=== PATIENT | male | born 1980 | race Caucasian/White ===

== ENCOUNTER 2016-09-17 17:36 | Emergency (ER) | payer OTHER ==
--- OUTSIDE RECORDS SUMMARY | 2016-09-17 18:11 | XMS REPORT | Continuity of Care Document ---
:1980 Author Organization [employer] [place] [address] Care Team Providers Name Role Phone Unavailable Primary Care Provider Unavailable Source Comments This disclosure is being made pursuant to the [employer] program and maynot contain all information available regarding this patient.[employer] Active Allergies and Adverse Reactions Not on File Current Medications Be aware that medications may not be up to date as of this document. Alwaysverify current medications with the patient. Not on file Active Problems Not on file Social History Tobacco Use Types Packs/Day Years Used Date Never Assessed Plan of Care Health Maintenance Due Date Last Done Comments Retired-Pertussis Vaccine Adult 1998 Retired-Tetanus Vaccine Adult 1998 Retired-INFLUENZA VACCINE 02/10/2015 Results from Last 3 Months Not on file
[2016-09-17] MEDS ORDERED: ALPRAZolam 0.25 MG TABLET PO ONE (18:12)
--- OUTSIDE RECORDS SUMMARY | 2016-09-17 18:12 | XMS REPORT | Continuity of Care Document ---
:1980 Author Organization [facility] ([facility]) Address [address] [place] [address] Phone [phone] Care Team Providers Name Role Phone Provider, No-Primary Care Primary Care Provider Unavailable Source Comments This disclosure is being made pursuant to the Care Everywhere program, applicable federal and state laws, and may not contain all informaitonavailable regarding this patient.[facility] ([facility]) Active Allergies and Adverse Reactions Allergen Noted Date Severity Reactions Comments Penicillin V Potassium 02/01/2012 Rash Current Medications Prescription Sig. Disp. Refills Start Date End Date Status haloperidol 10 mg Take 10 mg by mouth Active tablet at bedtime. PALIPERIDONE PALMITATE inject Active (INVEGA SUSTENNA IM) intramuscularly. clonazepam 1 mg Take 1 mg by mouth Active disintegrating tablet daily. DIPHENHYDRAMINE HCL Take by mouth. Active (BENADRYL ALLERGY PO) BUPROPION HCL Take by mouth 2 Active (WELLBUTRIN PO) times daily. HYDROcodone-acetaminoph Take 1 Tab by mouth 12 Tab 0 05/21/2012 Active en 5-325 mg per tablet every 4 hours as needed for Pain. DO NOT EXCEED 3,000 MG ACETAMINOPHEN PER DAY FROM ALL SOURCES Indications: PAIN Active Problems Not on file Social History Tobacco Use Types Packs/Day Years Used Date Current Every Day Smoker Cigarettes 2 21 Smokeless Tobacco: Former User Chew Tobacco Cessation:Ready to Quit: Yes Comments: Alcohol Use Drinks/Week oz/Week Comments Yes 6 Standard drinks or equivalent 3.0 Last Filed Vital Signs Vital Sign Reading Time Taken Blood Pressure 159/92 05/15/2012 12:33 PM INSPECTOR AND CLERK Pulse 84 05/15/2012 9:30 AM INSPECTOR AND CLERK Temperature 36.4 C (97.5 F) 05/15/2012 9:30 AM INSPECTOR AND CLERK Respiratory Rate 20 05/15/2012 9:30 AM INSPECTOR AND CLERK Height 1.905 m (6' 3") 05/15/2012 9:28 AM INSPECTOR AND CLERK Weight 153.316 kg (338 lb) 05/15/2012 9:28 AM INSPECTOR AND CLERK Body Mass Index 42.25 05/15/2012 9:28 AM INSPECTOR AND CLERK Oxygen Saturation 98% 05/15/2012 12:33 PM INSPECTOR AND CLERK Plan of Care Health Maintenance Due Date Last Done Comments Hepatitis B Vaccine (1 of 3 - Primary Series) 1980 Tdap Vaccine 1990 Lipid Disorder Screening 1997 MMR Vaccine 1997 Td Vaccine 1997 Pneumococcal Vaccine (1 of 1 - PPSV23) 1998 Influenza Vaccine: Seasonal (#1) 01/11/2016 Results from Last 3 Months Not on file
[2016-09-17] MEDS ORDERED: ALPRAZolam 0.25 MG TABLET ONE (18:17)
--- NOTE | 2016-09-17 18:36 | ERNOTE ---
Psychological HPI - Date Date of Service: 09/17/16 - General Chief Complaint: Anxiety Source: Reports: patient Exam Limitations: Reports: no limitations - Immun/Allergies/Home Medications Allergies/Adverse Reactions: Allergies Penicillins Allergy (Intermediate, Verified 09/17/16 17:57) Hives Home Medications: HOME MEDICATIONS Haloperidol [Haldol] 10 mg PO TID 06/08/16 [Last Taken 06/08/16] - History of Present Illness Narrative: 26 year old male presenting to the ER for anxiety. states he has been feeling anxious for the last 2 days. Time Seen by Provider: 09/17/16 18:05 Date (Duration): 09/17/16 Arrived by: Reports: private car Onset/duration: Reports: gradual onset Intent: Reports: no prior thoughts-suicide Associated Symptoms: Denies: depressed Review of Systems - Review of Systems Constitutional: Present: no symptoms reported. Absent: recent illness, fever, chills EYE: Present: no symptoms reported ENT: Present: no symptoms reported Respiratory: Present: no symptoms reported. Absent: shortness of breath Cardiology: Present: no symptoms reported Gastrointestinal/Abdominal: Present: no symptoms reported. Absent: nausea, vomiting, diarrhea Genitourinary: Present: no symptoms reported Musculoskeletal: Present: no symptoms reported Skin: Present: no symptoms reported Neurological: Present: anxiety Endocrine: Present: no symptoms reported Hematologic/Lymphatic: Present: no symptoms reported Psych: Present: no symptoms reported All Other Systems: All systems neg except as marked - Patient's Past Medical History Patient History - Medical: ADHD, Anxiety, Bipolar, Chronic Pain, Depression, Headache, Seizures Patient History - Cardiac/Respiratory: No pertinent hx Patient History - Cancer: No Hx of Cancer Patient History - Surgical Procedures: T & A Patient History - Other: None - Family History Unable to Obtain Family History - Medical: Diabetes Type 2 Family History - Cardiac/Respiratory: Hypertension - Social History Living Situations: alone Abuse History: Hx of Substance Use, Hx -Substance Use Tx, Hx-Community Resource Use Psych History: Psychiatric Hx, Hx of Depression, Hx of Bipolar Disorder, Hx of Schizophrenia, Current tx/ever been on anti-depressants or anti-anxiety meds Smoking Status: Current every day smoker Have you smoked in the past 12 months: Yes Alcohol Use: heavy Drug Use: cocaine, marijuana, meth, other - Immunizations Immunizations Up to Date: Yes Hx Pneumococcal Vaccination: No History of Influenza Vaccine: Yes Physical Exam - Physical Exam Narrative: patient appears anxious. General Appearance: Present: wd/wn, alert, no apparent distress Eye Exam: Normal inspection: bilateral Ears, Nose, Throat: Present: normal ENT inspection Neck: Present: normal inspection Respiratory: Present: no respiratory distress Cardiovascular/Chest: Present: regular rate, rhythm Gastrointestinal/Abdominal: Present: normal bowel sounds Extremity Exam: Present: normal inspection Neurological Exam: Present: alert, oriented, normal mood/affect, no motor/ sensory deficits Skin Exam: Present: normal color Lymphatic Exam: Present: no adenopathy ED Progress - Vital Signs Patient's Vital Signs:: I have reviewed the patient's vital signs. Vital Signs: Vital Signs 09/17/16 17:54 Temperature 36.4 C L Pulse Rate 84 Respiratory 12 Rate Blood Pressure 145/87 O2 Sat by Pulse 99 Oximetry - Progress/Reassessment Chief Complaint: Anxiety Progress:: Improved Progress Note-Subjective: 09/17/16 18:57 improved after medication. Departure Clinical Impression: Anxiety - Departure Disposition: Home Follow Up Needed Condition: Stable Instructions: Panic Attacks, [id number] Additional Instructions: continue all previous home medications. follow up with your primary care doctor for your anxiety. return to the ED if symptoms return or persist. Referrals: Marcos Ge MD [Primary Care Provider] -
[2016-09-17 18:54] VITALS: BP 145/89
== END 2016-09-17 19:08 | disposition home or self-care (01) ==
LOC: ER 17:36
DX: F41.9 Anxiety disorder, unspecified (principal)

== ENCOUNTER 2016-10-13 16:38 | Emergency (ER) | payer OTHER ==
--- OUTSIDE RECORDS SUMMARY | 2016-10-13 16:51 | XMS REPORT | Continuity of Care Document ---
:1980 Author Organization [facility] ([facility]) [place] [address] Phone [phone] Care Team Providers Name Role Phone Provider, No-Primary Care Primary Care Provider Unavailable Source Comments This disclosure is being made pursuant to the Care Everywhere program, applicable federal and state laws, and may not contain all informaitonavailable regarding this patient.[facility] ([facility]) Active Allergies and Adverse Reactions Allergen Noted [...] Taken Blood Pressure 159/92 05/15/2012 12:33 PM COMMUNICATIONS AND SIGNALS SUPERVISOR Pulse 84 05/15/2012 9:30 AM COMMUNICATIONS AND SIGNALS SUPERVISOR Temperature 36.4 C (97.5 F) 05/15/2012 9:30 AM COMMUNICATIONS AND SIGNALS SUPERVISOR Respiratory Rate 20 05/15/2012 9:30 AM COMMUNICATIONS AND SIGNALS SUPERVISOR Height 1.905 m (6' 3") 05/15/2012 9:28 AM COMMUNICATIONS AND SIGNALS SUPERVISOR Weight 153.316 kg (338 lb) 05/15/2012 9:28 AM COMMUNICATIONS AND SIGNALS SUPERVISOR Body Mass Index 42.25 05/15/2012 9:28 AM COMMUNICATIONS AND SIGNALS SUPERVISOR Oxygen Saturation 98% 05/15/2012 12:33 PM COMMUNICATIONS AND SIGNALS SUPERVISOR Plan of Care Health Maintenance Due Date Last Done Comments Hepatitis B Vaccine (1 of 3 - Primary Series) 1980 Tdap Vaccine 1990 Lipid Disorder Screening 1997 MMR Vaccine 1997 Td Vaccine 1997 Pneumococcal Vaccine (1 of 1 - PPSV23) 1998 Influenza Vaccine: Seasonal (#1) 01/11/2016 Results from Last 3 Months Not on file
--- OUTSIDE RECORDS SUMMARY | 2016-10-13 16:51 | XMS REPORT | Continuity of Care Document ---
:1980 Author Organization [email or web address] [place] [address] Care Team Providers Name Role Phone Unavailable Primary Care Provider Unavailable Source Comments This disclosure is being made pursuant to the [employer] program and maynot contain all information available regarding this patient.[email or web address] Active Allergies and Adverse Reactions Not on [...]
[2016-10-13 17:06] LABS: Hematocrit 41.6 % (42.0-52.0); Hemoglobin 14.1 gm/dL (13.5-18.0); Mean Cell Volume 90.4 fl (78-100); Mean Corpuscular Hemoglobin 30.7 pg (27-31); Mean Corpuscular Hgb Conc 33.9 g/dl (32-36); Mean Platelet Volume 9.2 fl (6.0-9.5); Neutrophil # 6.8 K/mm3 (1.3-6.0); Neutrophil % 69.5 % (42-75.0); Platelet Count 191 K/mm3 (150-450); Red Cell Distribution Width 13.3 % (11.5-14.0); White Blood Count 9.8 K/mm3 (4.0-10.5)
--- NOTE | 2016-10-13 17:07 | ERNOTE ---
Psychological HPI - Date Date of Service: 10/13/16 - General Source: Reports: patient Exam Limitations: Reports: no limitations - Immun/Allergies/Home Medications Allergies/Adverse Reactions: Allergies Penicillins Allergy (Intermediate, Verified 10/13/16 17:12) Hives Home Medications: HOME MEDICATIONS Haloperidol [Haldol] 10 mg PO TID 06/08/16 [Last Taken 06/08/16] Cetirizine HCl [Zyrtec] 10 mg PO DAILY 10/13/16 [Last Taken Unknown] Mirtazapine [Mirtazapine (Remeron)] 15 mg PO HS 10/13/16 [Last Taken Unknown] - History of Present Illness Narrative: Patient presents to the ED relating he is suicidal. 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 He relates he has been feeling suicidal, not homicidal but cannot say why he feels this way. He relates he does not know exactly how he will harm himself but has active thoughts of doing so. No HI. He relates he has been smoking crack. No CP or SOB. He does relates that he slipped in the rain several days ago and hurt his mid back but this is not why he came in. Had a psych admission 3 months ago by his report. No acute N/T/W. No CP or SOB, no N/T/W. Time Seen by Provider: 10/13/16 16:40 Onset/duration: Reports: continues in ED Intent: Reports: suicide Associated Symptoms: Reports: suicidal thoughts Prior Treament: Denies: recently seen Review of Systems - Review of Systems Constitutional: Absent: fever Respiratory: Absent: shortness of breath Cardiology: Absent: chest pain Gastrointestinal/Abdominal: Absent: abdominal pain Genitourinary: Present: no symptoms reported Musculoskeletal: Present: See HPI Neurological: Absent: weakness - Patient's Past Medical History Patient History - Medical: ADHD, Anxiety, Bipolar, Chronic Pain, Depression, Headache, Seizures Patient History - Cardiac/Respiratory: No pertinent hx Patient History - Cancer: No Hx of Cancer Patient History - Surgical Procedures: T & A Patient History - Other: None - Family History Unable to Obtain Family History - Medical: Diabetes Type 2 Family History - Cardiac/Respiratory: Hypertension - Social History Living Situations: alone Abuse History: Hx of Substance Use, Hx -Substance Use Tx, Hx-Community Resource Use Psych History: Psychiatric Hx, Hx of Depression, Hx of Bipolar Disorder, Hx of Schizophrenia, Current tx/ever been on anti-depressants or anti-anxiety meds Alcohol Use: heavy Drug Use: cocaine, marijuana, meth, other - Immunizations Immunizations Up to Date: Yes Hx Pneumococcal Vaccination: No History of Influenza Vaccine: Yes Physical Exam - Physical Exam General Appearance: Present: alert, no apparent distress Eye Exam: Normal inspection: bilateral, PERRL: bilateral Ears, Nose, Throat: Present: normal ENT inspection Neck: Present: normal inspection Respiratory: Present: no respiratory distress, normal breath sounds, no accessory muscle use, lungs clear Cardiovascular/Chest: Present: regular rate, rhythm Gastrointestinal/Abdominal: Present: normal bowel sounds, nontender, nondistended, soft Back Exam: Present: normal inspection, normal range of motion, other - there is paraspinal muscular tenderness mid thoracic spine. No vertebral tendenress. No C-spine tendenress or lumbar tendenress. Clinically this is muscular.. Absent: vertebral tenderness Extremity Exam: Present: normal inspection Neurological Exam: Present: alert, no motor/sensory deficits, guinea pig breeder II-XII nml as tested, other - Mild psychomotor agitation. Suicidal thoughts. No active hallucinations.. Absent: motor weakness Skin Exam: Absent: skin rash ED Progress - Results and Orders Patient's Lab Results:: I have reviewed the patient's lab results. - Vital Signs Patient's Vital Signs:: I have reviewed the patient's vital signs. - X-Ray X-Ray #1 X-Ray: thoracic Interpretation: Reviewed by me X-ray Comments: No acute fracture - Transfer of Care Physician Sign Out: Aydin Barba Receiving Physician: Jeniffer Calixto Expected Disposition: Transfer Departure Clinical Impression: Suicidal thoughts, Schizoaffective disorder, chronic condition, Musculoskeletal back pain - Departure Condition: Stable Referrals: Marcos Ge MD [Primary Care Provider] -
[2016-10-13] MEDS ORDERED: NICOTINE 21 MG PATC TD ONE (17:25)
[2016-10-13 17:30] LABS: Urine Bilirubin Negative (NEGATIVE); Urine Blood 25 /ul (NEGATIVE); Urine Ketone Negative (NEGATIVE); Urine Nitrite Negative (NEGATIVE); Urine Protein Negative (NEGATIVE); Urine Specific Gravity <=1.005 SP.GR. (1.005-1.030); Urine Urobilinogen Normal (NORMAL)
[2016-10-13] MEDS ORDERED: NICOTINE 21 MG PATC TD SCH (17:30)
[2016-10-13 17:31] LABS: ALT 30 U/L (19-67); AST 36 U/L (0-48); Albumin * 3.7 gm/dl (3.4-5.0); Alkaline Phosphatase * 73 U/L (50-170); Anion Gap 8.5 mmol/L (6.8-13.8); BUN/Creatinine Ratio 5.7 (9.0-21.6); Bilirubin, Total 0.4 mg/dL (0.0-1.1); Blood Urea Nitrogen 6 mg/dL (6-23); Ca. Corrected For Albumin 8.8 mg/dL (8.4-10.2); Calcium * 8.9 mg/dL (7.9-10.9); Carbon Dioxide 32.7 mmol/L (24-32.6); Chloride 103 mmol/L (97-106); Glucose * 87 mg/dL (70-110); Potassium 3.2 mmol/L (3.4-4.6); Salicylate Less than 2.8 mg/dL (2.8-20.0); Sodium 141 mmol/L (132-142); Total Protein 7.6 gm/dL (6.2-8.2)
[2016-10-13 17:45] LABS: Urine Appearance Clear; Urine Bacteria TRACE; Urine Color Yellow; Urine RBC 0-5 /hpf (0-5); Urine WBC None Seen /hpf (0-5)
[2016-10-13 17:46] LABS: Cocaine Ur Positive (NEGATIVE); Urine Barbiturate Negative (NEGATIVE); Urine Benzodiazepines Negative (NEGATIVE); Urine Opiates Negative (NEGATIVE); Urine PCP Negative (NEGATIVE); Urine THC Negative (NEGATIVE)
[2016-10-13] MEDS ORDERED: POTASSIUM CHLORIDE 20 MEQ TABLET.SA PO ONE (17:55)
[2016-10-13] MEDS ORDERED: POTASSIUM CHLORIDE 20 MEQ TABLET.SA ONE (18:05)
[2016-10-14] MEDS ORDERED: ACETAMINOPHEN 500 MG TABLET PO ONE (12:36)
[2016-10-14 15:15] VITALS: BP 135/91
== END 2016-10-14 15:07 | disposition short-term general hospital (02) ==
LOC: ER 16:38
DX: F25.9 Schizoaffective disorder, unspecified (principal); R45.851 Suicidal ideations; M54.6 Pain in thoracic spine; F31.9 Bipolar disorder, unspecified; Z79.899 Other long term (current) drug therapy
CPT/HCPCS: 36415; 72072; 80053; 80307; 81001; 84443; 85025; 99283; G0480; G0481

== ENCOUNTER 2016-12-02 00:47 | Emergency (ER) | payer OTHER ==
--- NOTE | 2016-12-02 01:26 | ERNOTE ---
<James Elias - Last Filed: 12/02/16 14:06> Psychological HPI - General Chief Complaint: Psychiatric Problem - Immun/Allergies/Home Medications Allergies/Adverse Reactions: Allergies Penicillins Allergy (Intermediate, Verified 12/02/16 00:59) Hives Home Medications: HOME MEDICATIONS Cetirizine HCl [Zyrtec] 10 mg PO DAILY 10/13/16 [Last Taken Unknown] Mirtazapine [Mirtazapine (Remeron)] 30 mg PO HS 10/13/16 [Last Taken Unknown] Haloperidol Lactate [Haldol] 100 mg IJ Q21D 12/02/16 [Last Taken 12/02/16] - History of Present Illness Time Seen by Provider: 12/02/16 01:22 ED Progress - Results and Orders Patient's Lab Results:: I have reviewed the patient's lab results. - Vital Signs Vital Signs: Vital Signs 12/02/16 12/02/16 04:00 09:00 Temperature 36.2 C L 37.4 C Pulse Rate 79 80 Respiratory 16 12 Rate Blood Pressure 106/56 110/77 O2 Sat by Pulse 96 98 Oximetry - Progress/Reassessment Chief Complaint: Psychiatric Problem Progress Note-Subjective: 12/02/16 10:[address] Andrea at 08:00 awaiting transfer. Receiving facility was concerned about some abnormalities in the urine, RBC and small amount of protein. I don't see any sign of infection and he is stable to be transferred to psychiatric facility. 12/02/16 14:06 Pt remained calm and slept most of the morning. Pt awake and alert and oriented x 3, INAD upon transfer. pt ambulated without difficulty to secure transport Departure Clinical Impression: Suicidal thoughts, Hallucinations, Schizoaffective disorder, chronic condition - Departure Disposition: Other health care facility Condition: Stable Instructions: Suicidal Feelings: How to Help Yourself Referrals: Marcos Ge MD [Primary Care Provider] - <Cem Andrea - Last Filed: 12/09/16 06:32> Psychological HPI - Date Date of Service: 12/02/16 - General Source: Reports: patient Exam Limitations: Reports: no limitations - History of Present Illness Narrative: 36 year that comes to the ED due to feeling suicidal. He believes that he would consider overdosing on pills, such as he did two other times, as his method of suicide. Has been hearing voices of friends for the last three weeks; that have been telling him to join them. The impulses for following the the voices is getting stronger. Last used marijuana and crack yesterday. Only occasionally uses alcohol. Denies any homicidal ideations. Feeling anxious. PMH: schizoaffective disorder, depression, suicidal ideations and attempt. Last seen by his psychiatrist one month ago. Has been compliant with medications. [facility] Arrived by: Reports: private car Onset/duration: Reports: gradual onset Intent: Reports: suicide Mechanism: Reports: overdose Associated Symptoms: Reports: depressed, agitated Prior Treament: Reports: treated by physician Review of Systems - Review of Systems Constitutional: Present: no symptoms reported EYE: Present: no symptoms reported ENT: Present: no symptoms reported Respiratory: Present: no symptoms reported Cardiology: Present: no symptoms reported Gastrointestinal/Abdominal: Present: no symptoms reported Genitourinary: Present: no symptoms reported Musculoskeletal: Present: no symptoms reported Neurological: Present: no symptoms reported Endocrine: Present: no symptoms reported Hematologic/Lymphatic: Present: no symptoms reported Psych: Present: See HPI - Patient's Past Medical History Patient History - Medical: ADHD, Anxiety, Bipolar, Chronic Pain, Depression, Headache, Seizures Patient History - Cardiac/Respiratory: No pertinent hx Patient History - Cancer: No Hx of Cancer Patient History - Surgical Procedures: T & A Patient History - Other: None - Family History Unable to Obtain Family History - Medical: Diabetes Type 2 Family History - Cardiac/Respiratory: Hypertension - Social History Living Situations: home Abuse History: Hx of Substance Use, Hx -Substance Use Tx, Hx-Community Resource Use Psych History: Psychiatric Hx, Hx of Depression, Hx of Bipolar Disorder, Hx of Schizophrenia, Current tx/ever been on anti-depressants or anti-anxiety meds Smoking Status: Current every day smoker Alcohol Use: occasionally Drug Use: cocaine, marijuana - Immunizations Immunizations Up to Date: Yes Hx Pneumococcal Vaccination: No History of Influenza Vaccine: Yes Physical Exam - Physical Exam General Appearance: Present: no apparent distress Eye Exam: Normal inspection: bilateral Ears, Nose, Throat: Present: normal ENT inspection Neck: Present: normal inspection, supple Respiratory: Present: no respiratory distress Cardiovascular/Chest: Present: regular rate, rhythm Gastrointestinal/Abdominal: Present: nondistended Back Exam: Present: normal inspection Extremity Exam: Present: normal inspection Neurological Exam: Present: alert, oriented, other - mildly anxious, but cooperative Skin Exam: Present: normal color, warm/dry ED Progress - Results and Orders Patient's Lab Results:: I have reviewed the patient's lab results. - Vital Signs Patient's Vital Signs:: I have reviewed the patient's vital signs. Vital Signs: Vital Signs 12/02/16 00:50 Temperature 36.0 C L Pulse Rate 101 H Respiratory 18 Rate Blood Pressure 142/97 O2 Sat by Pulse 96 Oximetry - Progress/Reassessment Progress:: Improved Progress Note-Subjective: 12/02/16 06:44 The patient will be transferred to [facility] for continued care. 12/02/16 06:44 Has slept since getting Ativan.
[2016-12-02 01:27] LABS: Hemoglobin 13.7 gm/dL (13.5-18.0); Mean Cell Volume 89.7 fl (78-100); Mean Corpuscular Hemoglobin 30.7 pg (27-31); Mean Corpuscular Hgb Conc 34.3 g/dl (32-36); Mean Platelet Volume 9.5 fl (6.0-9.5); Neutrophil # 9.2 K/mm3 (1.3-6.0); Neutrophil % 76.3 % (42-75.0); Platelet Count 190 K/mm3 (150-450); Red Blood Count 4.46 M/mm3 (4.7-6.0); Red Cell Distribution Width 12.9 % (11.5-14.0); White Blood Count 12.1 K/mm3 (4.0-10.5)
[2016-12-02 01:28] LABS: Urine Bilirubin 1 mg/dl (NEGATIVE); Urine Blood 50 /ul (NEGATIVE); Urine Ketone Negative (NEGATIVE); Urine Nitrite Negative (NEGATIVE); Urine Protein 15 mg/dL (NEGATIVE); Urine Specific Gravity >=1.030 SP.GR. (1.005-1.030); Urine Urobilinogen Normal (NORMAL)
[2016-12-02 01:37] LABS: Urine Appearance Clear; Urine Bacteria TRACE; Urine Color Dark Yellow; Urine WBC 0-5 /hpf (0-5)
[2016-12-02] MEDS ORDERED: LORazepam 1 MG TABLET PO ONE (01:47)
[2016-12-02 01:48] LABS: Urine Barbiturate Negative (NEGATIVE); Urine Benzodiazepines Negative (NEGATIVE); Urine Opiates Negative (NEGATIVE); Urine PCP Negative (NEGATIVE)
[2016-12-02 01:49] LABS: ALT 31 U/L (19-67); AST 60 U/L (0-48); Albumin * 4.1 gm/dl (3.4-5.0); Alkaline Phosphatase * 86 U/L (50-170); BUN/Creatinine Ratio 15.4 (9.0-21.6); Bilirubin, Total 0.7 mg/dL (0.0-1.1); Blood Urea Nitrogen 20 mg/dL (6-23); Calcium * 9.4 mg/dL (7.9-10.9); Carbon Dioxide 28.1 mmol/L (24-32.6); Chloride 100 mmol/L (97-106); Cocaine Ur Positive (NEGATIVE); Glucose * 84 mg/dL (70-110); Potassium 4.1 mmol/L (3.4-4.6); Sodium 137 mmol/L (132-142); TSH * 1.384 uIU/mL (0.358-3.74); Total Protein 8.2 gm/dL (6.2-8.2); Urine THC Positive (NEGATIVE)
[2016-12-02] MEDS ORDERED: LORazepam 1 MG TABLET ONE (01:55)
--- OUTSIDE RECORDS SUMMARY | 2016-12-02 02:53 | XMS REPORT | Continuity of Care Document ---
:1980 Author Organization [facility] [place] [address] Care Team Providers Name Role Phone Unavailable Primary Care Provider Unavailable Source Comments This disclosure is being made pursuant to the [employer] program and maynot contain all information available regarding this patient.[facility] Active Allergies and Adverse Reactions Not on [...]
[2016-12-02 13:51] VITALS: BP 120/74
== END 2016-12-02 13:40 | disposition short-term general hospital (02) ==
LOC: ER 00:47
DX: R45.851 Suicidal ideations (principal); R44.0 Auditory hallucinations; F25.9 Schizoaffective disorder, unspecified
CPT/HCPCS: 36415; 80053; 80307; 81001; 84443; 85025; 99285; G0480; G0481

== ENCOUNTER 2017-02-09 15:49 | Emergency (ER) | payer OTHER ==
[2017-02-09] MEDS ORDERED: MECLIZINE HCL 25 MG TABLET PO ONE (16:30)
[2017-02-09] MEDS ORDERED: MECLIZINE HCL 25 MG TABLET ONE (16:31)
--- NOTE | 2017-02-09 16:36 | ERNOTE ---
Dizziness ER Record Presenting Symptoms: dizziness Time Seen by Provider: 02/09/17 16:22 Source: patient Exam Limitations: no limitations Immunizations: IMMUNIZATION HX Immunizations Up to Date Yes History of Influenza Vaccine No Hx Pneumococcal Vaccination No Allergies/Adverse Reactions: Allergies Allergy/AdvReac Type Severity Reaction Status Date / Time Penicillins Allergy Intermediate Hives Verified 02/09/17 15:58 Home Medications: HOME MEDICATIONS Haloperidol Lactate [Haldol] 100 mg IJ Q21D 12/02/16 [Last Taken 12/02/16] Atomoxetine HCl [Strattera] 25 mg PO BID 02/09/17 [Last Taken Unknown] Carvedilol [Coreg] 12.5 mg PO BID 02/09/17 [Last Taken Unknown] Loratadine [Claritin] 10 mg PO DAILY 02/09/17 [Last Taken Unknown] Meclizine HCl [Antivert] 25 mg PO TID PRN #42 tab 02/09/17 [Last Taken Unknown] clonazePAM [Klonopin] 1 mg PO HS 02/09/17 [Last Taken Unknown] - History of Present Illness Narrative: Patient states that he's been dizzy for approximately the last 3 weeks. He denies any dizziness with sudden head movements and also denies any nausea or vomiting. He isn't able to walk okay without falling and has no other complaint. Timing and Duration: gradual onset, constant - for the past 3 weeks Noted on awakening:: Yes Severity: max: mild Severity: currently: mild Associated Symptoms: Present: none Decreased ability to stand/walk:: Present: walks w/o assistance Usually:: Present: walks w/o assistance Modifying Factors - (Improves): Reports: nothing Modifying Factors - (Worsens): Reports: nothing Review of Systems - Review of Systems Constitutional: Present: See HPI EYE: Present: no symptoms reported ENT: Present: no symptoms reported Respiratory: Present: no symptoms reported Cardiology: Present: no symptoms reported Gastrointestinal/Abdominal: Present: no symptoms reported Genitourinary: Present: no symptoms reported Musculoskeletal: Present: no symptoms reported Skin: Present: no symptoms reported Neurological: Present: See HPI Endocrine: Present: no symptoms reported Hematologic/Lymphatic: Present: no symptoms reported Psych: Present: no symptoms reported - Patient's Past Medical History Patient History - Medical: ADHD, Anxiety, Bipolar, Chronic Pain, Depression, Headache, Seizures Patient History - Cardiac/Respiratory: No pertinent hx Patient History - Cancer: No Hx of Cancer Patient History - Surgical Procedures: T & A Patient History - Other: None - Family History Unable to Obtain Family History - Medical: Diabetes Type 2 Family History - Cardiac/Respiratory: Hypertension - Social History Living Situations: home Abuse History: Hx of Substance Use, Hx -Substance Use Tx, Hx-Community Resource Use Psych History: Psychiatric Hx, Hx of Depression, Hx of Bipolar Disorder, Hx of Schizophrenia, Current tx/ever been on anti-depressants or anti-anxiety meds Smoking Status: Current every day smoker Have you smoked in the past 12 months: Yes Alcohol Use: occasionally Drug Use: none - Immunizations Immunizations Up to Date: Yes Hx Pneumococcal Vaccination: No History of Influenza Vaccine: No Physical Exam - Physical Exam General Appearance: Present: wd/wn, alert, no apparent distress Eye Exam: Normal inspection: bilateral, PERRL: bilateral Ears, Nose, Throat: Present: normal ENT inspection, H, normal pharynx Neck: Present: normal inspection, nontender Respiratory: Present: no respiratory distress, normal breath sounds, no accessory muscle use, chest nontender, lungs clear Cardiovascular/Chest: Present: regular rate, rhythm, no murmur, normal peripheral pulses Gastrointestinal/Abdominal: Present: normal bowel sounds, nontender, nondistended, soft, no organomegaly Rectal Exam: Present: deferred Back Exam: Present: normal inspection, normal range of motion Extremity Exam: Present: normal inspection, non-tender, no edema, normal range of motion Neurological Exam: Present: alert, oriented, normal mood/affect Skin Exam: Present: normal color, warm/dry Lymphatic Exam: Present: no adenopathy ED Progress - Results and Orders Patient's Lab Results:: I have reviewed the patient's lab results. - Vital Signs Patient's Vital Signs:: I have reviewed the patient's vital signs. Vital Signs: Vital Signs 02/09/17 15:53 Temperature 36.4 C L Pulse Rate 80 Respiratory 16 Rate Blood Pressure 136/78 O2 Sat by Pulse 98 Oximetry - CT/Ultrasound CT/Ultrasound Narrative: CT of the head was reviewed - Progress/Reassessment Chief Complaint: Dizziness Plan - Plan Plan: Patient felt better after 50 mg of Antivert. I suspect this is likely a reaction to his Strattera as dizziness is a common side effect. I will start him on 25 mg of Antivert 3 times a day and have him call his prescribing physician for the Strattera. Departure Clinical Impression: Vertigo Adverse drug reaction Qualifiers: Encounter type: initial encounter Qualified Code(s): T88.7XXA - Unspecified adverse effect of drug or medicament, initial encounter - Departure Disposition: Home self-care Condition: Good Instructions: Vertigo, [id number] Referrals: Marcos Ge MD [Primary Care Provider] - Prescriptions: Meclizine HCl [Antivert] 25 mg PO TID PRN #42 tab PRN Reason: Vertigo
[2017-02-09 16:44] LABS: Hematocrit 40.2 % (42.0-52.0); Hemoglobin 13.8 gm/dL (13.5-18.0); Mean Cell Volume 90.3 fl (78-100); Mean Corpuscular Hgb Conc 34.3 g/dl (32-36); Mean Platelet Volume 9.3 fl (6.0-9.5); Neutrophil # 4.1 K/mm3 (1.3-6.0); Neutrophil % 61.4 % (42-75.0); Platelet Count 193 K/mm3 (150-450); Red Blood Count 4.45 M/mm3 (4.7-6.0); Red Cell Distribution Width 13.4 % (11.5-14.0); White Blood Count 6.7 K/mm3 (4.0-10.5)
[2017-02-09 16:58] LABS: Albumin * 3.7 gm/dl (3.4-5.0); Anion Gap 11.4 mmol/L (6.8-13.8); Bilirubin, Total 0.5 mg/dL (0.0-1.1); Ca. Corrected For Albumin 8.8 mg/dL (8.4-10.2); Calcium * 8.9 mg/dL (7.9-10.9); Carbon Dioxide 29.9 mmol/L (24-32.6); Potassium 4.3 mmol/L (3.4-4.6); Total Protein 7.6 gm/dL (6.2-8.2)
[2017-02-09 17:50] VITALS: BP 131/71
== END 2017-02-09 17:25 | disposition home or self-care (01) ==
LOC: ER 15:49
DX: R42 Dizziness and giddiness (principal); T43.215A Adverse effect of selective serotonin and norepinephrine reuptake inhibitors, initial encounter; F90.9 Attention-deficit hyperactivity disorder, unspecified type; F31.70 Bipolar disorder, currently in remission, most recent episode unspecified; G89.29 Other chronic pain; F17.200 Nicotine dependence, unspecified, uncomplicated

== ENCOUNTER 2017-03-01 18:36 | Emergency (ER) | payer OTHER ==
[2017-03-01 18:54] VITALS: BP 139/77
[2017-03-01 19:16] LABS: Urine Bilirubin Negative (NEGATIVE); Urine Blood 50 /ul (NEGATIVE); Urine Ketone Negative (NEGATIVE); Urine Nitrite Negative (NEGATIVE); Urine Protein 15 mg/dL (NEGATIVE); Urine Specific Gravity 1.015 SP.GR. (1.005-1.030); Urine Urobilinogen Normal (NORMAL)
[2017-03-01 19:19] LABS: Hematocrit 38.5 % (42.0-52.0); Hemoglobin 13.2 gm/dL (13.5-18.0); Mean Corpuscular Hemoglobin 30.8 pg (27-31); Mean Corpuscular Hgb Conc 34.3 g/dl (32-36); Mean Platelet Volume 9.9 fl (6.0-9.5); Neutrophil # 5.3 K/mm3 (1.3-6.0); Neutrophil % 66.2 % (42-75.0); Platelet Count 203 K/mm3 (150-450); Red Blood Count 4.28 M/mm3 (4.7-6.0); Red Cell Distribution Width 13.6 % (11.5-14.0); White Blood Count 8.1 K/mm3 (4.0-10.5)
[2017-03-01 19:29] LABS: Cocaine Ur Positive (NEGATIVE); Urine Barbiturate Negative (NEGATIVE); Urine Benzodiazepines Negative (NEGATIVE); Urine Opiates Negative (NEGATIVE); Urine PCP Negative (NEGATIVE); Urine THC Positive (NEGATIVE)
[2017-03-01 19:33] LABS: Urine Appearance Slightly Cloudy; Urine Color Yellow
[2017-03-01 19:34] LABS: Urine Bacteria 4+; Urine RBC None Seen /hpf (0-5); Urine WBC None Seen /hpf (0-5)
[2017-03-01 19:40] LABS: ALT 27 U/L (19-67); AST 30 U/L (0-48); Albumin * 4.1 gm/dl (3.4-5.0); Alkaline Phosphatase * 78 U/L (50-170); Anion Gap 12.1 mmol/L (6.8-13.8); BUN/Creatinine Ratio 6.1 (9.0-21.6); Bilirubin, Total 0.6 mg/dL (0.0-1.1); Blood Urea Nitrogen 6 mg/dL (6-23); Ca. Corrected For Albumin 8.5 mg/dL (8.4-10.2); Calcium * 8.9 mg/dL (7.9-10.9); Carbon Dioxide 29.6 mmol/L (24-32.6); Chloride 105 mmol/L (97-106); Glucose * 105 mg/dL (70-110); Potassium 3.7 mmol/L (3.4-4.6); Salicylate 3.4 mg/dL (2.8-20.0); Sodium 143 mmol/L (132-142); TSH * 0.862 uIU/mL (0.358-3.74); Total Protein 7.9 gm/dL (6.2-8.2)
--- NOTE | 2017-03-01 20:15 | ERNOTE ---
Psychological HPI - General Chief Complaint: Psychiatric Problem Source: Reports: patient Exam Limitations: Reports: no limitations - Immun/Allergies/Home Medications Allergies/Adverse Reactions: Allergies Penicillins Allergy (Intermediate, Verified 02/09/17 15:58) Hives Home Medications: HOME MEDICATIONS Haloperidol Lactate [Haldol] 100 mg IJ Q21D 12/02/16 [Last Taken 12/02/16] Atomoxetine HCl [Strattera] 25 mg PO BID 02/09/17 [Last Taken Unknown] Loratadine [Claritin] 10 mg PO DAILY 02/09/17 [Last Taken Unknown] Meclizine HCl [Antivert] 25 mg PO TID PRN #42 tab 02/09/17 [Last Taken Unknown] clonazePAM [Klonopin] 1 mg PO HS 02/09/17 [Last Taken Unknown] Clonazepam 0.5 mg PO BID 03/01/17 [Last Taken Unknown] Fluticasone Propionate [Flonase] 1 spray NS DAILY 03/01/17 [Last Taken Unknown] Naproxen [Naprosyn] 500 mg PO BID 03/01/17 [Last Taken Unknown] - History of Present Illness Narrative: Pt states he has been having trouble sleeping for 5 days and has slept minimal to none in those 5 days. He states he has muscle tension in his upper back that is keeping him from sleeping Time Seen by Provider: 03/01/17 20:10 Arrived by: Reports: private car Onset/duration: Reports: gradual onset Intent: Reports: prior thoughts of suicide - no active thoughts of suicide at this time Review of Systems - Review of Systems Constitutional: Absent: recent illness EYE: Absent: vision changes ENT: Present: no symptoms reported Respiratory: Absent: shortness of breath Cardiology: Absent: chest pain Gastrointestinal/Abdominal: Present: no symptoms reported Genitourinary: Present: no symptoms reported Musculoskeletal: Present: See HPI, back pain, muscle pain, muscle stiffness, neck pain. Absent: joint pain, joint swelling Skin: Absent: rash Neurological: Present: anxiety Endocrine: Present: no symptoms reported Hematologic/Lymphatic: Present: no symptoms reported Psych: Present: no symptoms reported - Patient's Past Medical History Patient History - Medical: ADHD, Anxiety, Bipolar, Chronic Pain, Depression, Headache, Seizures Patient History - Cardiac/Respiratory: No pertinent hx Patient History - Cancer: No Hx of Cancer Patient History - Surgical Procedures: T & A Patient History - Other: None - Family History Unable to Obtain Family History - Medical: Diabetes Type 2 Family History - Cardiac/Respiratory: Hypertension - Social History Living Situations: home Abuse History: Hx of Substance Use, Hx -Substance Use Tx, Hx-Community Resource Use Psych History: Psychiatric Hx, Hx of Depression, Hx of Bipolar Disorder, Hx of Schizophrenia, Current tx/ever been on anti-depressants or anti-anxiety meds Smoking Status: Current every day smoker Have you smoked in the past 12 months: Yes Do you dip or chew tobacco: No Alcohol Use: occasionally Drug Use: cocaine, marijuana, meth, other - Immunizations Immunizations Up to Date: Yes Hx Pneumococcal Vaccination: No History of Influenza Vaccine: No Psychological Exam - Exam General Appearance: Present: wd/wn, alert, no apparent distress Head Exam: Present: normal inspection, no evidence of injury Neurological: Present: alert, 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, oriented x 3, anxious Thoughts/Hallucinations: Present: normal thought pattern Behavior/Eye Contact/Speech: Present: cooperative, good eye contact, increased rate of speech Neck: Present: full range of motion, other - mild left trapezius muscular tenderness Respiratory: Present: no respiratory distress, no accessory muscle use Back Exam: Present: normal range of motion, no CVA tenderness, muscle spasm - left trapizius and rhomboids Extremity Exam: Present: normal inspection, normal range of motion Skin Exam: Present: normal color, warm/dry, no cyanosis Lymphatic Exam: Present: no adenopathy ED Progress - Vital Signs Patient's Vital Signs:: I have reviewed the patient's vital signs. Vital Signs: Vital Signs 03/01/17 18:45 Temperature 36.8 C Pulse Rate 94 Respiratory 16 Rate Blood Pressure 139/77 O2 Sat by Pulse 98 Oximetry - Progress/Reassessment Chief Complaint: Psychiatric Problem Departure Clinical Impression: Trapezius muscle spasm Insomnia Qualifiers: Insomnia type: drug-induced Qualified Code(s): F19.982 - Other psychoactive substance use, unspecified with psychoactive substance-induced sleep disorder - Departure Disposition: Home Follow Up Needed Condition: Good Instructions: Muscle Cramps and Spasms, [id number] Additional Instructions: See your regular doctor if not improving Referrals: Marcos Ge MD [Primary Care Provider] -
[2017-03-01] MEDS ORDERED: ORPHENADRINE CITRATE 30 MG/ML VIAL IM ONE (20:19)
[2017-03-01] MEDS ORDERED: ORPHENADRINE CITRATE 30 MG/ML VIAL ONE (20:21)
== END 2017-03-01 20:41 | disposition home or self-care (01) ==
LOC: ER 18:36
DX: M62.838 Other muscle spasm (principal); F19.982 Other psychoactive substance use, unspecified with psychoactive substance-induced sleep disorder; F90.9 Attention-deficit hyperactivity disorder, unspecified type; F41.8 Other specified anxiety disorders; F31.70 Bipolar disorder, currently in remission, most recent episode unspecified; G89.29 Other chronic pain; F17.200 Nicotine dependence, unspecified, uncomplicated
CPT/HCPCS: 36415; 80053; 80307; 81001; 84443; 85025; 96372; 99284; G0480; G0481

== ENCOUNTER 2018-07-08 16:51 | Observation (INO) ==
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
[2018-07-08 17:20] LABS: Hematocrit 37.8 % (42.0-52.0); Hemoglobin 12.6 gm/dL (13.5-18.0); Mean Cell Volume 92.2 fl (78-100); Mean Corpuscular Hemoglobin 30.7 pg (27-31); Mean Corpuscular Hgb Conc 33.3 g/dl (32-36); Neutrophil # 7.6 K/mm3 (1.3-6.0); Neutrophil % 81.2 % (42-75.0); Platelet Count 212 K/mm3 (150-450); Red Cell Distribution Width 13.2 % (11.5-14.0); White Blood Count 9.3 K/mm3 (4.0-10.5)
[2018-07-08 17:21] LABS: Urine Appearance Clear (CLEAR); Urine Bilirubin Negative (NEGATIVE); Urine Color Yellow
[2018-07-08 17:22] LABS: Urine Bacteria None Seen; Urine Blood 5 /ul (NEGATIVE); Urine Ketone Negative (NEGATIVE); Urine Nitrite Negative (NEGATIVE); Urine Protein Negative (NEGATIVE); Urine RBC 0-5 /hpf (0-5); Urine Specific Gravity 1.005 SP.GR. (1.005-1.030); Urine Urobilinogen Normal (NORMAL); Urine WBC 0-5 /hpf (0-5); Urine pH 6.5 pH (5.0-7.0)
[2018-07-08 17:27] LABS: Cocaine Ur Positive (NEGATIVE); Urine Barbiturate Negative (NEGATIVE); Urine Benzodiazepines Negative (NEGATIVE); Urine Opiates Negative (NEGATIVE); Urine PCP Negative (NEGATIVE); Urine THC Negative (NEGATIVE)
[2018-07-08 17:29] LABS: ALT 21 U/L (19-67); AST 25 U/L (0-48); Acetaminophen * 1.4 mcg/mL (10.0-30.0); Albumin * 3.7 gm/dl (3.4-5.0); Alkaline Phosphatase * 83 U/L (50-170); Anion Gap 14.3 mmol/L (6.8-13.8); BUN/Creatinine Ratio 7.2 (9.0-21.6); Bilirubin, Total 0.3 mg/dL (0.0-1.1); Blood Urea Nitrogen 8 mg/dL (6-23); Ca. Corrected For Albumin 8.6 mg/dL (8.4-10.2); Calcium * 8.7 mg/dL (7.9-10.9); Carbon Dioxide 28.3 mmol/L (24-32.6); Chloride 101 mmol/L (97-106); Glucose * 95 mg/dL (70-110); Potassium 3.6 mmol/L (3.4-4.6); Salicylate 3.1 mg/dL (2.8-20.0); Sodium 140 mmol/L (132-142); Total Protein 7.1 gm/dL (6.2-8.2)
[2018-07-08 18:37] LABS: CK Total * 209 U/L (0-259)
[2018-07-08 18:41] LABS: Troponin I Less than 0.017 ng/mL (0.00-0.10)
--- NOTE | 2018-07-08 23:57 | HP ---
Chief Complaint - Chief Complaint Date of Service: 07/08/18 Time of Service: 23:57 Chief Complaint: Overdose History of Present Illness: Barak is a 38 yo male with reported overdose by his girlfriend. She reports he had locked in the bathroom around 13:00, when he got out she noticed pill bottles. Later the patient started to fall repeatedly, once hitting his nose and having a brief nose bleed. EMS were called around 16:30. Patient states that he took 30 1mg clonazepam, he also reported to using cocaine, although later denied it. Currently he is somnolent and a poor historian. He does wake up briefly to answer a few questions but does not talk much. He reports feeling tired but otherwise has no concerning symptoms. Medical History (Last Reviewed 07/09/18 @ 21:19 by James Elias DO) Seizures (Chronic) Onset Date: Unknown Scoliosis (Chronic) Onset Date: Unknown Schizoaffective disorder (Chronic) Onset Date: ~10/2016 Radiculopathy (Chronic) Onset Date: ~08/18/14 Other seasonal allergic rhinitis (Chronic) Onset Date: ~10/22/15 Low back pain (Chronic) Onset Date: ~08/18/14 Hyperlipidemia (Chronic) Onset Date: Unknown Frequent headaches (Chronic) Onset Date: Unknown Essential hypertension (Chronic) Onset Date: ~09/05/16 Depression (Chronic) Onset Date: Unknown BPH (benign prostatic hyperplasia) (Chronic) Onset Date: ~03/22/13 Bipolar disorder (Chronic) Onset Date: Unknown Asthma (Chronic) Onset Date: Unknown Anxiety disorder (Chronic) Onset Date: Unknown ADHD (attention deficit hyperactivity disorder) (Chronic) Onset Date: Unknown ADD (attention deficit disorder) (Chronic) Onset Date: Unknown Abdominal pain, RLQ Onset Date: ~03/22/13 Bronchitis Onset Date: Unknown Chest pain Onset Date: Unknown Drug overdose, intentional Onset Date: ~04/23/15 Suicidal ideations Onset Date: Unknown Traumatic brain injury Onset Date: Unknown Surgical History: Surgical History (Last Reviewed 07/09/18 @ 21:19 by James Elias DO) History of tonsillectomy Onset Date: Unknown Loss of teeth due to extraction Onset Date: Unknown Family History: Family History (Last Reviewed 07/09/18 @ 21:19 by James Elias DO) Mother Hypertension Grandmother Diabetes Social History: Preferred Language Canadian Do you have any yazidi or Yes: congregation cultural preference? Smoking Status Current every day smoker Have you smoked in the past 12 Yes months Do you dip or chew tobacco No Abuse History Hx of Substance Use,Hx -Substance Use Tx,Hx- Community Resource Use Psych History Psychiatric Hx,Hx of Depression,Hx of Bipolar Disorder,Hx of Schizophrenia,Currently on Meds Alcohol Use rarely Drug Use cocaine (Last Updated 06/04/18 @ 06:30 by Marcos Ge MD) No Social History Section defined Review Of Systems (GEN) - Review of Systems Generalized/Overall Review: Present: Weakness, Fatigue. Absent: Chills, Fever EENTM: Present: No Symptoms Reported Respiratory: Absent: Cough, Shortness of Breath Cardiac: Absent: Chest Pain, Edema, Palpitations Abdominal: Absent: Nausea, Vomiting, Abdominal Pain Genitourinary: Present: No Symptoms Reported Musculoskeletal: Present: No Symptoms Reported Neurological: Present: No Symptoms Reported, Weakness Skin: Present: No Symptoms Reported Endocrine: Present: No Symptoms Reported Immunizations: IMMUNIZATION HX Immunizations Up to Date Yes History of Influenza Vaccine No Hx Pneumococcal Vaccination No Allergies/Adverse Reactions: Allergies Allergy/AdvReac Type Severity Reaction Status Date / Time Penicillins Allergy Intermediate Hives Verified 07/12/18 10:50 Home Medications: HOME MEDICATIONS cetirizine 10 mg tablet 10 mg PO DAILY #30 tab 06/01/18 [Last Taken Unknown] cyclobenzaprine 10 mg tablet 10 mg PO HS #30 tab 06/01/18 [Last Taken Unknown] montelukast 10 mg tablet 10 mg PO QPM 30 Days #30 tab 06/01/18 [Last Taken Unknown] atomoxetine 40 mg capsule 40 mg PO QAM #30 cap 07/20/18 [Last Taken Unknown] haloperidol 10 mg tablet 10 mg PO BID #60 tab 07/20/18 [Last Taken Unknown] mirtazapine 15 mg tablet 15 mg PO HS #30 tab 07/20/18 [Last Taken Unknown] olanzapine 20 mg tablet 20 mg PO HS #30 tab 07/20/18 [Last Taken Unknown] prazosin 2 mg capsule 2 mg PO BID #60 cap 07/20/18 [Last Taken Unknown] Exam - Exam Vital Signs: Vital Signs - Last Taken Temp 37.0 C 07/08/18 23:15 Pulse 97 07/08/18 23:15 Resp 16 07/08/18 23:15 BP 118/67 07/08/18 23:15 Pulse Ox 96 07/08/18 23:15 Constitutional: Present: Somnolent ENT Exam: Present: hearing grossly normal Eye Exam: bilateral eye: normal inspection Respiratory: Present: lungs clear, normal breath sounds Cardiovascular/Chest: Present: regular rate, rhythm, no murmur Abdomen: Present: Normal bowel sounds, soft, nontender, nondistended, no rebound tenderness Skin Exam: Present: normal color, warm/dry, no cyanosis Lymphatic: Present: no adenopathy Neurologic: Absent: motor weakness, sensory deficit Diagnostic Studies: Abnormal Lab Results 07/08/18 07/08/18 07/08/18 Range/Units 17:10 17:10 17:10 RBC 4.10 L (4.7-6.0) M/mm3 Hgb 12.6 L (13.5-18.0) gm/dL Hct 37.8 L (42.0-52.0) % Immature Gran # (Auto) 0.04 H (0.000-0.0310) K/mm3 Neutrophils % 81.2 H (42-75.0) % Lymphocytes % 11.3 L (20-51) % Neutrophils # 7.6 H (1.3-6.0) K/mm3 Lymphocytes # 1.05 L (1.5-3.5) k/mm3 Anion Gap 14.3 H (6.8-13.8) mmol/L BUN/Creatinine Ratio 7.2 L (9.0-21.6) Urine Blood 5 H (NEGATIVE) /ul Acetaminophen 1.4 L (10.0-30.0) mcg/mL Urine Cocaine Screen (NEGATIVE) 07/08/18 Range/Units 17:10 RBC (4.7-6.0) M/mm3 Hgb (13.5-18.0) gm/dL Hct (42.0-52.0) % Immature Gran # (Auto) (0.000-0.0310) K/mm3 Neutrophils % (42-75.0) % Lymphocytes % (20-51) % Neutrophils # (1.3-6.0) K/mm3 Lymphocytes # (1.5-3.5) k/mm3 Anion Gap (6.8-13.8) mmol/L BUN/Creatinine Ratio (9.0-21.6) Urine Blood (NEGATIVE) /ul Acetaminophen (10.0-30.0) mcg/mL Urine Cocaine Screen Positive H (NEGATIVE) Laboratory Results WBC 9.3 K/mm3 (4.0-10.5) 07/08/18 17:10 RBC 4.10 M/mm3 (4.7-6.0) L 07/08/18 17:10 Hgb 12.6 gm/dL (13.5-18.0) L 07/08/18 17:10 Hct 37.8 % (42.0-52.0) L 07/08/18 17:10 MCV 92.2 fl (78-100) 07/08/18 17:10 MCH 30.7 pg (27-31) 07/08/18 17:10 MCHC 33.3 g/dl (32-36) 07/08/18 17:10 RDW 13.2 % (11.5-14.0) 07/08/18 17:10 Plt Count 212 K/mm3 (150-450) 07/08/18 17:10 MPV 9.0 fl (8-11.3) 07/08/18 17:10 Immature Gran % (Auto) 0.40 % (0.001-0.429) 07/08/18 17:10 Immature Gran # (Auto) 0.04 K/mm3 (0.000-0.0310) H 07/08/18 17:10 Neutrophils % 81.2 % (42-75.0) H 07/08/18 17:10 Lymphocytes % 11.3 % (20-51) L 07/08/18 17:10 Monocytes % 4.7 % (0.0-9) 07/08/18 17:10 Eosinophils % 1.8 % (0.0-3.0) 07/08/18 17:10 Basophils % 0.6 % (0.0-1.0) 07/08/18 17:10 Nucleated RBC % 0.0 k/mm3 (0-1) 07/08/18 17:10 Neutrophils # 7.6 K/mm3 (1.3-6.0) H 07/08/18 17:10 Lymphocytes # 1.05 k/mm3 (1.5-3.5) L 07/08/18 17:10 Monocytes # 0.4 k/mm3 (0.0-1.0) 07/08/18 17:10 Eosinophils # 0.2 k/mm3 (0.0-0.7) 07/08/18 17:10 Absolute Basophils 0.1 k/mm3 (0.0-0.1) 07/08/18 17:10 Sodium 140 mmol/L (132-142) 07/08/18 17:10 Plasma Sodium 140 mmol/L (130-142) 07/08/18 17:10 Potassium 3.6 mmol/L (3.4-4.6) 07/08/18 17:10 Chloride 101 mmol/L (97-106) 07/08/18 17:10 Carbon Dioxide 28.3 mmol/L (24-32.6) 07/08/18 17:10 Anion Gap 14.3 mmol/L (6.8-13.8) H 07/08/18 17:10 BUN 8 mg/dL (6-23) 07/08/18 17:10 Creatinine 1.11 mg/dL (0.4-1.4) 07/08/18 17:10 Est GFR (Non-Af Amer) 78 mL/min (60-130) 07/08/18 17:10 BUN/Creatinine Ratio 7.2 (9.0-21.6) L 07/08/18 17:10 Random Glucose 95 mg/dL (70-110) 07/08/18 17:10 Calcium 8.7 mg/dL (7.9-10.9) 07/08/18 17:10 Calcium Adj for Albumin 8.6 mg/dL (8.4-10.2) 07/08/18 17:10 Total Bilirubin 0.3 mg/dL (0.0-1.1) 07/08/18 17:10 AST 25 U/L (0-48) 07/08/18 17:10 ALT 21 U/L (19-67) 07/08/18 17:10 Alkaline Phosphatase 83 U/L (50-170) 07/08/18 17:10 Creatine Kinase 209 U/L (0-259) 07/08/18 17:10 Troponin I Less than 0.017 ng/mL (0.00-0.10) 07/08/18 17:10 Total Protein 7.1 gm/dL (6.2-8.2) 07/08/18 17:10 Albumin 3.7 gm/dl (3.4-5.0) 07/08/18 17:10 Urine Color Yellow 07/08/18 17:10 Urine Appearance Clear (CLEAR) 07/08/18 17:10 Urine pH 6.5 pH (5.0-7.0) 07/08/18 17:10 Ur Specific [place] 1.005 SP.GR. (1.005-1.030) 07/08/18 17:10 Urine Protein Negative mg/dL (NEGATIVE) 07/08/18 17:10 Urine Glucose (UA) Negative mg/dL (NEGATIVE) 07/08/18 17:10 Urine Ketones Negative mg/dL (NEGATIVE) 07/08/18 17:10 Urine Blood 5 /ul (NEGATIVE) H 07/08/18 17:10 Urine Nitrate Negative (NEGATIVE) 07/08/18 17:10 Urine Bilirubin Negative mg/dl (NEGATIVE) 07/08/18 17:10 Urine Urobilinogen Normal EU/dl (NORMAL) 07/08/18 17:10 Ur Leukocyte Esterase Negative /ul (NEGATIVE) 07/08/18 17:10 Urine RBC 0-5 /hpf (0-5) 07/08/18 17:10 Urine WBC 0-5 /hpf (0-5) 07/08/18 17:10 Ur Epithelial Cells 0-5 /hpf (0-5) 07/08/18 17:10 Urine Bacteria None seen (NONE) 07/08/18 17:10 Urine Culture Comments No culture indicated 07/08/18 17:10 Salicylates 3.1 mg/dL (2.8-20.0) 07/08/18 17:10 Urine Opiates Screen Negative (NEGATIVE) 07/08/18 17:10 Acetaminophen 1.4 mcg/mL (10.0-30.0) L 07/08/18 17:10 Barbiturate Screen Negative (NEGATIVE) 07/08/18 17:10 Ur Phencyclidine Scrn Negative (NEGATIVE) 07/08/18 17:10 Urine Amphetamine Negative (NEGATIVE) 07/08/18 17:10 U Benzodiazepines Scrn Negative (NEGATIVE) 07/08/18 17:10 Urine Cocaine Screen Positive (NEGATIVE) H 07/08/18 17:10 Urine Marijuana (THC) Negative (NEGATIVE) 07/08/18 17:10 Ethyl Alcohol Less than 3.0 mg/dL (0.0-10.0) 07/08/18 17:10 Assessment/Plan - Assessment/Plan (1) Overdose Assessment: Barak is a 38 yo male with overdose of Clonazepam. He will be admitted to observation and monitored in the [facility] with direct nursing care. He is somnolent but otherwise no focal concerns. Expect he will be medically stable tomorrow once me metabolizes through his clonazepam. Problem: Acute Qualifiers: Encounter type: initial encounter Injury intent: intentional self-harm Qualified Code(s): T50.902A - Poisoning by unspecified drugs, medicaments and biological substances, intentional self-harm, initial encounter
[2018-07-09] MEDS ORDERED: PRAZOSIN HCL 5 MG CAPSULE PO SCH (09:00)
[2018-07-09] MEDS ORDERED: LORATADINE 10 MG TABLET PO SCH (09:00)
[2018-07-09] MEDS ORDERED: HALOPERIDOL 5 MG TABLET PO SCH (09:00)
--- NOTE | 2018-07-09 12:23 | DS ---
(1) Overdose Problem: Acute Qualifiers: Encounter type: initial encounter Injury intent: intentional self-harm Qualified Code(s): T50.902A - Poisoning by unspecified drugs, medicaments and biological substances, intentional self-harm, initial encounter (2) Anxiety Problem: Acute (3) Schizoaffective disorder, chronic condition Problem: Acute (4) Essential hypertension Problem: Chronic Description of Stay: Pt. admitted for accidental overdose, denies suicidal intent or ideation. BP's were high and so prazosin was added to help with his anxiety and BP and should help any BPH sx's as well. Clonazepam d/c'd due to inappropriate use of this medication. Pt. counselled on use of cocaine worsening his anxiety and he states he will refrain its use. Procedures Performed: none Results and Findings: Lab Pending Results 07/08/18 17:10: WBC 9.3, RBC 4.10 L, Hgb 12.6 L, Hct 37.8 L, MCV 92.2, MCH 30.7, MCHC 33.3, RDW 13.2, Plt Count 212, MPV 9.0, Immature Gran % (Auto) 0.40, Immature Gran # (Auto) 0.04 H, Neutrophils % 81.2 H, Lymphocytes % 11.3 L, Monocytes % 4.7, Eosinophils % 1.8, Basophils % 0.6, Nucleated RBC % 0.0, Neutrophils # 7.6 H, Lymphocytes # 1.05 L, Monocytes # 0.4, Eosinophils # 0.2, Absolute Basophils 0.1 07/08/18 17:10: Sodium 140, Plasma Sodium 140, Potassium 3.6, Chloride 101, Carbon Dioxide 28.3, Anion Gap 14.3 H, BUN 8, Creatinine 1.11, Est GFR (Non-Af Amer) 78, BUN/Creatinine Ratio 7.2 L, Random Glucose 95, Calcium 8.7, Calcium Adj for Albumin 8.6, Total Bilirubin 0.3, AST 25, ALT 21, Alkaline Phosphatase 83, Total Protein 7.1, Albumin 3.7, Salicylates 3.1, Acetaminophen 1.4 L, Ethyl Alcohol Less than 3.0 07/08/18 17:10: Urine Color Yellow, Urine Appearance Clear, Urine pH 6.5, Ur Specific [place] 1.005, Urine Protein Negative, Urine Glucose (UA) Negative, Urine Ketones Negative, Urine Blood 5 H, Urine Nitrate Negative, Urine Bilirubin Negative, Urine Urobilinogen Normal, Ur Leukocyte Esterase Negative, Urine RBC 0-5, Urine WBC 0-5, Ur Epithelial Cells 0-5, Urine Bacteria None seen, Urine Culture Comments No culture indicated 07/08/18 17:10: Urine Opiates Screen Negative, Barbiturate Screen Negative, Ur Phencyclidine Scrn Negative, Urine Amphetamine Negative, U Benzodiazepines Scrn Negative, Urine Cocaine Screen Positive H, Urine Marijuana (THC) Negative 07/08/18 17:10: Creatine Kinase 209, Troponin I Less than 0.017 Disposition: Home self-care Condition: Good Discharge Activity: Activity as tolerated Discharge Diet: General/regular food Referrals: Marcos Ge MD [Primary Care Provider] - One Week Prescriptions (Any new or edited meds): Prazosin HCl [Minipress] 2 mg PO BID #60 cap Complete Home Medications List: Complete Home Medication List: cetirizine 10 mg tablet 10 mg PO DAILY #30 tab 06/01/18 cyclobenzaprine 10 mg tablet 10 mg PO HS #30 tab 06/01/18 haloperidol 10 mg tablet 10 mg PO BID #60 tab 06/01/18 montelukast 10 mg tablet 10 mg PO QPM 30 Days #30 tab 06/01/18 olanzapine 20 mg tablet 20 mg PO HS #30 tab 06/01/18 Prazosin HCl [Minipress] 2 mg PO BID #60 cap 07/09/18
[2018-07-09 12:26] VITALS: BP 101/69
[2018-07-09] MEDS ORDERED: MONTELUKAST SODIUM 10 MG TABLET PO SCH (17:00)
[2018-07-09] MEDS ORDERED: OLANZapine 5 MG TABLET PO SCH (21:00)
== END 2018-07-09 12:40 | disposition home or self-care (01) ==
LOC: SCU 16:51 → MS 16:51 → ER 16:51
PROVIDERS: ADMIT Family Medicine; ATTEND Family Medicine
DX: F25.8 Other schizoaffective disorders; F41.9 Anxiety disorder, unspecified; I10 Essential (primary) hypertension; T50.901A Poisoning by unspecified drugs, medicaments and biological substances, accidental (unintentional), initial encounter; N40.0 Benign prostatic hyperplasia without lower urinary tract symptoms
CPT/HCPCS: 36415; 70450; 80053; 80307; 80320; 80329; 81001; 82550; 84484; 85025; 93005; 94760; 99284; G0378; G0480; G0481